=== PATIENT | female | born 1990 | race Two or more races ===

== ENCOUNTER 2016-07-11 13:05 | Emergency (ER) | payer OTHER ==
--- NOTE | 2016-07-11 14:58 | ED Physician Documentation ---
History of Present Illness - Stated complaint Stated Complaint: BODY ACHE/WHALEY - Chief complaint Chief Complaint: General - History obtained from History obtained from: Patient - History of Present Illness Timing: How many days ago (4) - Treatment prior to arrival Treatment prior to arrival: Ibuprophen and Excedrin. - Additonal information Additional information: The patient is a 26-year-old female who presents with a constellation of symptoms including chills, generalized myalgias, headache, sore throat, and left earache, that started 4 days ago. She denies fever or cough. She has been using ibuprofen and Excedrin without relief. She is 8 days status post extraction of 4 wisdom teeth. Review of Systems Constitutional: reports: Chills, Myalgias. denies: Fever Eyes: denies: Irritation Ears: reports: Ear pain (left ear) Nose: reports: Congestion Throat: reports: Sore throat Cardiac: denies: Chest pain / pressure Respiratory: denies: Dyspnea, Cough GI: denies: Abdominal Pain, Nausea, Vomiting : reports: LMP (started yesterday). denies: Dysuria Skin: denies: Rash Musculoskeletal: denies: Back pain Neurologic: reports: Headache PD PAST MEDICAL HISTORY - Past Medical History Past Medical History: No Cardiovascular: None Respiratory: None Endocrine/Autoimmune: None - Past Surgical History Past Surgical History: Yes /[employer]ER: Other - Present Medications Home Medications: Ambulatory Orders Medication Instructions Recorded Confirmed No Known Home Medications [No 07/11/16 07/11/16 Known Home Medications] - Allergies Allergies/Adverse Reactions: Allergies Allergy/AdvReac Type Severity Reaction Status Date / Time No Known Drug Allergies Allergy Verified 07/11/16 13:16 - Social History Does the pt smoke?: No Smoking Status: Never smoker Does the pt drink ETOH?: Yes Does the pt have substance abuse?: No - Immunizations Immunizations are current?: Yes PD ED PE NORMAL - Vitals Vital signs reviewed: Yes (normal) - General General: Alert and oriented X 3, Well developed/nourished - HEENT HEENT: Atraumatic, EOMI, Ears normal, Pharynx benign, Other (Hobbs teeth extraction sites appear to be healing well, without evidence of infection.) - Neck Neck: Supple, no meningeal sign, No adenopathy, No JVD - Cardiac Cardiac: RRR, No murmur - Respiratory Respiratory: No respiratory distress, Clear bilaterally - Abdomen Abdomen: Soft, Non tender - Back Back: No CVA TTP - Derm Derm: No rash - Extremities Extremities: No edema, No calf tenderness / cord - Neuro Neuro: Alert and oriented X 3, No motor deficit, Normal speech Results - Vitals Vitals: Oxygen O2 Source Room air PD MEDICAL DECISION MAKING - ED course Complexity details: considered differential, d/w patient, d/w family ED course: The patient's presentation is most consistent with acute viral syndrome. There is no clinical evidence to suggest meningitis, acute otitis media, pharyngitis, or pneumonia. I discussed with her and her the expected course of illness, symptomatic treatment and outpatient follow-up, as well as potentially worrisome signs or symptoms that should prompt reevaluation in the emergency department. Departure - Departure Disposition: 01 Home, Self Care Clinical Impression: Acute viral syndrome Condition: Stable Instructions: ED Viral Syndrome Follow-Up: Danni Yanez ARNP [Physician No Access] - Comments: Drink plenty of fluids. You can use ibuprofen, up to 800 mg 3 times daily for fever or discomfort. Follow up with your primary physician within 2 weeks. Call to schedule an appointment. Return to the emergency department if you develop increasing achiness, shortness of breath, persistent vomiting, or otherwise worsening symptoms. Discharge Date/Time: 07/11/16 15:21
[2016-07-11 15:10] VITALS: BP 112/76
== END 2016-07-11 15:21 | disposition home or self-care (01) ==
LOC: ED 13:05
DX: B34.9 Viral infection, unspecified (principal)
CPT/HCPCS: 99282; 99283